=== PATIENT | female | born 1985 | race Caucasian/White ===

== ENCOUNTER 2021-01-27 13:32 | Emergency (ER) | payer BC, OTHER | END 2021-01-27 16:00 | disposition home or self-care (01) | LOC: CSHERS 13:32 | DX: S06.0X0A Concussion without loss of consciousness, initial encounter (principal); G43.909 Migraine, unspecified, not intractable, without status migrainosus; Z79.899 Other long term (current) drug therapy; W55.12XA Struck by horse, initial encounter | CPT/HCPCS: 70450 ==

== ENCOUNTER 2022-10-23 23:02 | Inpatient (IN) | payer BC ==
[2022-10-23 23:25] VITALS: BMI 26.9
[2022-10-24] MEDS ORDERED: hydrALAZINE 20 MG/ML VIAL SLOW IVP PRN ×2 (02:49→13:27)
[2022-10-24] MEDS ORDERED: Acetaminophen 500 MG TAB PO PRN (02:49)
[2022-10-24] MEDS ORDERED: Butorphanol Tartrate 1 MG/ML VIAL SLOW IVP PRN (02:49)
[2022-10-24] MEDS ORDERED: Promethazine HCl 25 MG/ML VIAL IM PRN ×2 (02:49→04:00)
[2022-10-24] MEDS ORDERED: Ondansetron PF 4 MG/2 ML Vial IVP PRN ×3 (02:49→13:27)
[2022-10-24] MEDS ORDERED: Lactated Ringer's 1,000 ML IV SCH (03:00)
[2022-10-24] MEDS ORDERED: Fentanyl 2 mcg/Bup 0.1% Cadd 100 ML ONE (03:16)
[2022-10-24 03:18] LABS: Hemoglobin 12.2 g/dL (12.0-15.5); Mean Corpuscular HGB CONC 34.6 g/dL (32.0-36.0); Mean Corpuscular Volume 89.8 fl (81.6-98.3); Mean Platelet Volume 10.8 fl (7.4-10.4); Platelet Count 180 10x3/uL (150-450); RBC Distribution Width 11.7 % (11.5-14.5); Red Blood Cell (RBC) Count 3.93 10x6/uL (3.90-5.03); White Blood Cell (WBC) Count 13.9 10x3/uL (3.5-10.5)
[2022-10-24 03:44] LABS: SARS-CoV-2 NAA Rapid Test Not Detected (NotDetected)
[2022-10-24 03:50] LABS: HBSAg Index 0.16 S/CO (0-0.99); Hep B Surf Ag Non-Reactive S/CO (NonReactive); Syphilis Antibody Nonreactive (Nonreactive); Syphilis Antibody Index 0.06 S/CO (<1.00 Non-Reactive)
[2022-10-24] MEDS ORDERED: diphenhydrAMINE 50 MG/ML VIAL IVP PRN (04:00)
[2022-10-24] MEDS ORDERED: ePHEDrine Sulfate 50 MG/10 ML VIAL SLOW IVP PRN (04:00)
[2022-10-24] MEDS ORDERED: Communication Order-Pharmacy FS SCH (04:00)
[2022-10-24] MEDS ORDERED: Naloxone HCl 0.4 mg/ml Vial IVP PRN ×2 (04:00)
[2022-10-24] MEDS ORDERED: Fentanyl 2 mcg/Bupivacaine 0.1% Cassette 100 ML EPIDURAL SCH (04:00)
[2022-10-24] MEDS ORDERED: Lactated Ringer's 500 ML IV PRN (04:00)
[2022-10-24] MEDS ORDERED: Moisturizing Cream (Eucerin) 113 GM JAR TOP PRN (04:00)
[2022-10-24] MEDS ORDERED: Acetaminophen 325 MG TAB PO PRN (04:00)
[2022-10-24] MEDS ORDERED: NS w/ Oxytocin 30 units 500 ML ONE ×2 (06:40→11:44)
[2022-10-24] MEDS ORDERED: Bupivacaine PF 0.5% 30 ML VIAL ONE (08:00)
[2022-10-24] MEDS ORDERED: HYDROcodone/Acetaminophen 5/325 mg Tablet PO PRN (13:27)
[2022-10-24] MEDS ORDERED: Benzocaine-Menthol 82.5 ML CAN TOP PRN (13:27)
[2022-10-24] MEDS ORDERED: Lanolin Ointment 7 GM TUBE TOP PRN (13:27)
[2022-10-24] MEDS ORDERED: diphenhydrAMINE 25 MG CAP PO PRN (13:27)
[2022-10-24] MEDS ORDERED: Bisacodyl 10 MG SUPP PR PRN (13:27)
[2022-10-24] MEDS ORDERED: Milk Of Magnesia 30 ML UDCUP PO PRN (13:27)
[2022-10-24] MEDS ORDERED: Preparation H Ointment 28 GM TUBE PR PRN (13:27)
[2022-10-24] MEDS ORDERED: Boostrix 0.5 ML (Tdap) VIAL (>/=7 yrs of age) IM ONE (13:27)
[2022-10-24] MEDS: Ibuprofen 800 MG TAB PO SCH ×2 (13:46→21:40)
[2022-10-24] MEDS: Ferrous Sulfate 325 MG TAB PO SCH (15:12)
[2022-10-24] MEDS: HYDROcodone/Acetaminophen 5/325 mg Tablet PO PRN (18:31)
[2022-10-24] MEDS: Docusate 100 MG CAP PO SCH (21:40)
[2022-10-25] MEDS: HYDROcodone/Acetaminophen 5/325 mg Tablet PO PRN ×5 (02:54→22:49)
[2022-10-25] MEDS: Ibuprofen 800 MG TAB PO SCH ×4 (05:04→21:53)
[2022-10-25] MEDS: Docusate 100 MG CAP PO SCH ×2 (08:19→21:53)
[2022-10-25] MEDS: Ferrous Sulfate 325 MG TAB PO SCH ×2 (08:20→16:42)
[2022-10-25] MEDS: Prenatal Vitamin 1 TAB PO SCH (08:20)
[2022-10-25] MEDS ORDERED: Moisturizing Cream (Eucerin) 113 GM JAR TOP PRN (22:34)
[2022-10-26] MEDS: Ibuprofen 800 MG TAB PO SCH (05:24)
[2022-10-26 07:55] VITALS: BP 97/55; TEMP 98.3
[2022-10-26] MEDS: Prenatal Vitamin 1 TAB PO SCH (09:31)
[2022-10-26] MEDS: Docusate 100 MG CAP PO SCH (09:31)
[2022-10-26] MEDS: Ferrous Sulfate 325 MG TAB PO SCH (10:50)
== END 2022-10-26 11:20 | disposition home or self-care (01) | DRG 807 ==
LOC: CSHLD/OP 23:02 → CSHLD 10-24 02:49 → CSHPP 10-24 13:15
PROVIDERS: ADMIT Obstetrics & Gynecology; ATTEND Obstetrics & Gynecology
PROC: 10E0XZZ Delivery of Products of Conception, External Approach (ICD-10-PCS; principal; 2022-10-24)
DX: O80 Encounter for full-term uncomplicated delivery (principal); Z37.0 Single live birth; Z3A.39 39 weeks gestation of pregnancy; Z88.0 Allergy status to penicillin; Z20.822 Contact with and (suspected) exposure to COVID-19
CPT/HCPCS: 36415; 51702; 85027; 86780; 86850; 86900; 86901; 87340; 99285; J2405; J2590; J7120; S0020; U0002